=== PATIENT | female | born 1950 | race Caucasian/White ===

== ENCOUNTER → 2017-07-18 | Day surgery (SDC) | payer MEDICARE, BC ==
[2017-07-14 12:43] LABS: BASOPHILS % 0.5 % (0.0-1.0); EOSINOPHILS # (AUTO) 0.1 (0.0-0.4); EOSINOPHILS % 1.7 % (0.0-6.0); HEMATOCRIT 40.7 % (34.2-44.1); MEAN CORPUSCULAR HEMOGLOBIN 26.2 pg (28-32); MEAN CORPUSCULAR HGB CONC 31.9 g/dL (31-35); MEAN CORPUSCULAR VOLUME 81.9 fL (81-99); MONOCYTES # (AUTO) 0.5 (0.2-0.8); NEUTROPHILS # (AUTO) 4.8 (2.1-6.9); NEUTROPHILS % 63.5 % (38.7-80.0); PLATELET COUNT 266 x10e3/uL (140-360); RED BLOOD COUNT 4.97 x10e6/uL (3.6-5.1); RED CELL DISTRIBUTION WIDTH 14.5 % (11.7-14.4)
[~2017-07-18] MED LIST: ARMOUR THYROID60 MG; ARTHROTEC EC 71 EACH; ASPIRIN PO; BIOTIN PO; CARISOPRODOL250 MG; CARISOPRODOL250 MG PO; CARISOPRODOL350 MG PO; DESLORATADINE5 MG PO; ESCITALOPRAM OX20 MG PO; FENTANYL CITRATE/PF 100MCG/2 ML INJ IJ ONE; FISH OIL; GLUCAGON FOR INJ 1 MG VIAL IV ONE; HYDROCHLOROTHIA25 MG PO; HYOSCYAMINE SULFATE 0.5 MG/ML AMP IV ONE; LEVOTHYROXINE PO; LEVOTHYROXINE137 MCG PO; LIDOCAINE HCL 2% LOCAL INJ 5 ML SDV VIAL INJ ONE; LINZESS PO; MIDAZOLAM HCL 2 MG/2 ML VIAL INJ ONE; MULTIPLE VITAMIN; NEXIUM40 MG PO; NORTRIPTYLINE H25 MG PO; OSTEO BI-FLEX; PROPOFOL IV EMULSION 10 MG/ML 50 ML VIAL IV ONE; SAVELLA50 MG PO; TURMERIC CURCUMIN PO; VITAMIN B COMP1 EACH; VITAMIN D35000 UNIT PO; VITAMIN D5000 UNIT
--- NOTE | 2017-07-18 10:16 | Operative Report ---
DATE OF PROCEDURE: July 18, 2017 REFERRING PHYSICIAN: Dr. Omar Montalvo PROCEDURES PERFORMED 1. Esophagogastroduodenoscopy with esophageal dilatation. 2. Colonoscopy with polypectomy. INDICATIONS FOR EGD: Dysphagia and heartburn. INDICATIONS FOR COLONOSCOPY: Colorectal cancer screening, father with colon cancer and personal history of colon polyps. MEDICATION: The patient was done under MAC. Please see anesthesiologist's note. PROCEDURE: With the patient in the left lateral decubitus position, the flexible fiberoptic Olympus gastroscope was introduced into the esophagus under direct visualization without any difficulty. There was some patchy erythema noted in the distal esophagus. The scope was then advanced with ease and gastric stapling site was noted at 10 cm distal to the lower esophageal sphincter. The stapling site appeared somewhat stenotic and was traversed with the scope. The mucosa overlying the distal body and the antrum revealed some diffuse erythema and low-grade edema, and biopsies were obtained and sent to stain for H. pylori. The pylorus appeared to be of normal contour and shape. It was intubated with ease. The scope was advanced all the way to the 2nd portion of the duodenum. The scope was then withdrawn slowly. Mucosa overlying the proximal 2nd portion and the duodenal bulb appeared to be normal limits. The scope was then withdrawn back above the gastric stapling site and retroflexed. Mucosa overlying the fundus and the cardia appeared to be within normal limits. The scope was then straightened out. The stomach was decompressed. The stapling site was then dilated to a size 16 Savory over a wire. The patient tolerated the procedure well. IMPRESSION 1. Mild distal esophagitis. 2. Status post gastric stapling. 3. Gastric stapling site somewhat stenotic, dilated to size 16 Savory over a wire. PLAN: Follow up histology. Continue Nexium 40 mg 1 p.o. a.c. b.i.d. The patient was then turned around. After adequate lubrication of the anal canal, a flexible fiberoptic Olympus colonoscope was inserted into the rectum with ease and advanced all the way to the cecum. Prep overall was suboptimal with retained stools in the colon. One polyp was snared from the cecum. The scope was then withdrawn slowly. Mucosa overlying the ascending, transverse and descending grossly appeared to be within normal limits. Two polyps were snared from the sigmoid. Three polyps were snared from the rectum. The scope was then retroflexed into the distal rectum and small internal hemorrhoids were noted, none of which were actively bleeding. The scope was then straightened out. The rectosigmoid area, as well as the distal rectal area were decompressed. The scope was subsequently withdrawn. The patient tolerated the procedure well. IMPRESSION 1. Cecal polyp, snared. 2. Sigmoid colon polyps, snared times 2. 3. Rectal polyps, snared times 3. 4. Internal hemorrhoids, none actively bleeding. PLAN: Follow up histology. Initiate high-fiber and low-fat diet. Initiate high-fiber supplement. The patient will need a followup colonoscopy in 3 years. Job#: [id number] TUCKER cc:OMAR MONTALVO MD
== END | disposition home or self-care (01) ==
LOC: OR 06:56
PROVIDERS: ATTEND Internal Medicine Gastroenterology
DX: Z12.11 Encounter for screening for malignant neoplasm of colon (principal); D12.0 Benign neoplasm of cecum; D12.8 Benign neoplasm of rectum; K63.5 Polyp of colon; K20.9 Esophagitis, unspecified; Z98.84 Bariatric surgery status; K21.9 Gastro-esophageal reflux disease without esophagitis; K64.8 Other hemorrhoids; M79.7 Fibromyalgia; F32.9 Major depressive disorder, single episode, unspecified; F41.9 Anxiety disorder, unspecified; Z01.810 Encounter for preprocedural cardiovascular examination; Z01.812 Encounter for preprocedural laboratory examination; Z80.0 Family history of malignant neoplasm of digestive organs
CPT/HCPCS: 36415; 43248; 85025; 88305; 88312; 93005; J1610; J1980; J2001; J2250; 43239; 45385

== ENCOUNTER → 2018-08-14 | Day surgery (SDC) | payer MEDICARE, BC ==
[2018-08-10 13:08] LABS: BASOPHILS % 0.4 % (0.0-1.0); EOSINOPHILS # (AUTO) 0.1 (0.0-0.4); EOSINOPHILS % 1.3 % (0.0-6.0); HEMATOCRIT 40.7 % (34.2-44.1); HEMOGLOBIN 13.4 g/dL (12.0-16.0); LYMPHOCYTES # (AUTO) 2.3 (1.0-3.2); MEAN CORPUSCULAR HEMOGLOBIN 27.5 pg (28-32); MEAN CORPUSCULAR HGB CONC 32.9 g/dL (31-35); MEAN CORPUSCULAR VOLUME 83.4 fL (81-99); MONOCYTES # (AUTO) 0.5 (0.2-0.8); MONOCYTES % 6.5 % (4.4-11.3); NEUTROPHILS # (AUTO) 4.2 (2.1-6.9); NEUTROPHILS % 58.7 % (38.7-80.0); PLATELET COUNT 265 x10e3/uL (140-360); RED BLOOD COUNT 4.88 x10e6/uL (3.6-5.1); RED CELL DISTRIBUTION WIDTH 15.1 % (11.7-14.4)
[~2018-08-14] MED LIST changes: -FENTANYL CITRATE/PF 100MCG/2 ML INJ IJ ONE; +FENTANYL CITRATE/PF 100MCG/2 ML INJ ONE; -GLUCAGON FOR INJ 1 MG VIAL IV ONE; -HYOSCYAMINE SULFATE 0.5 MG/ML AMP IV ONE; +HYOSCYAMINE SULFATE 0.5 MG/ML INJ ONE; -MIDAZOLAM HCL 2 MG/2 ML VIAL INJ ONE; +MIDAZOLAM HCL 2 MG/2 ML VIAL ONE; +MOVE FREE PO; +MULTI-VITAMIN1 EACH PO; +PROBIOTIC & AC1 EACH PO; -PROPOFOL IV EMULSION 10 MG/ML 50 ML VIAL IV ONE; +PROPOFOL IV EMULSION 10 MG/ML 50 ML VIAL ONE
--- OUTSIDE RECORDS SUMMARY | 2018-08-16 11:06 | XMS REPORT ---
Author Tha Webb Organization eClinical[employer] Address Unknown Phone Unavailable Care Team Providers Care Outside Barrel Lathe Operator Name Role Phone Tha Moise CP Unavailable Allergies No Known Allergies Problems Problem Type Condition Code Onset Dates Condition Status Problem Left shoulder pain M25.512 Active Problem Primary osteoarthritis involving multiple joints M15.0 Active Problem Shoulder pain, right M25.511 Active Problem Fibromyalgia M79.7 Active Problem Osteopenia M85.80 Active Medications Medication Code System Code Instructions Start Date End Date Status Dosage Carisoprodol [facility] 80463796915 350 MG Orally once at night Jul 19, 2018 Active 2 tablet Results No Known Results Summary Purpose eClinicalWorks Submission
--- OUTSIDE RECORDS SUMMARY | 2018-08-16 11:06 | XMS REPORT ---
Author Author Juanita Zuleta [facility] [place] eClinicalWorks Address Unknown Phone Unavailable Care Team Providers Care Urban Planning Teacher Name Role Phone Juanita Zuleta Unavailable Allergies, Adverse Reactions, Alerts Substance Reaction Event Type lyrica Info Not Available Non Drug Allergy Problems Problem Type Condition Code Onset Dates Condition Status Problem Osteopenia M85.80 Active Problem Left shoulder pain M25.512 Active Problem Fibromyalgia M79.7 Active Assessment Primary osteoarthritis involving multiple joints M15.0 Active Problem Primary osteoarthritis involving multiple joints M15.0 Active Assessment Fibromyalgia M79.7 Active Medications Medication Code System Code Instructions Start Date End [place] D[place] [address] Orally qd Active 1 tab Escitalopram Oxalate ND 20462869387 20 MG Orally Once a day Active 0.5 tablet TUMERIC NDC 0 6,000 MG ORALLY ONCE A DAY Active 1 CAPSULE Savella ND 78649259443 50MG Orally Twice a day Active 1 tablet Nortriptyline HCl ND 41923711236 25 MG Orally Once a day Active 1 capsule Linzess ND 60444279884 145 MCG Orally every other morning Active 1 capsule Melatonin NDC 74386465245 5 MG Orally once at night Active 2 tablet at bedtime as needed with food Desloratadine ND 19927820990 5 MG Orally Once a day Active 1 tablet on the tongue and allow to dissolve Levothyroxin ND 0 137 MCG PO QD Active 1 tab Nexium ND 22760453446 40 MG Orally bid Active 1 capsules Carisoprodol ND 07106146054 350 MG Orally once at night Jul 06, 2017 March 14, 2018 Active 2 tablet Symbicort ND 98726673233 160-4.5 MCG/ACT Inhalation prn Active 2 puffs Probiotic NDC 08819789380 Orally qd Active 1 cap Vitamin D-3 Super Strength ND 80948630504 2000 UNIT Orally Once a day Active 1 capsule Vital Signs Date/Time: December 14, 2017 BMI 44.16 Index Weight 257.3 lbs Height 64 in Temperature 98.5 F Cardiac Monitoring Heart Rate 68 /min Blood Pressure Diastolic 70 mm Hg Blood Pressure Systolic 108 mm Hg Results No Known Results Summary Purpose eClinicalWorks Submission
--- OUTSIDE RECORDS SUMMARY | 2018-08-16 11:06 | XMS REPORT ---
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 Problem Left shoulder pain M25.512 Active Problem Primary osteoarthritis involving multiple joints M15.0 Active Problem Shoulder pain, right M25.511 Active Assessment Shoulder pain, right M25.511 Active Assessment Fibromyalgia M79.7 Active Problem Fibromyalgia M79.7 Active Problem Osteopenia M85.80 Active Medications Medication Code System Code Instructions Start Date End Date Status Dosage Probiotic NDC 27350655426 Orally qd [place] 1 [place] [address] Orally qd Active 1 tab Carisoprodol NDC 07246175203 350 MG Orally once at night Active 2 tablet Tumeric NDC 0 6,000 MG ORALLY ONCE A DAY Active 1 CAPSULE Levothyroxin NDC 0 137 MCG PO QD Active 1 tab Nortriptyline HCl NDC 79659594455 25 MG Orally Once a day Active 1 capsule Desloratadine ND 69452064512 5 MG Orally Once a day Active 1 tablet on the tongue and allow to dissolve Linzess ND 86785931440 145 MCG Orally every other morning Active 1 capsule Melatonin ND 35184804543 5 MG Orally once at night Active 2 tablet at bedtime as needed with food Vitamin D-3 Super Strength ND 47405311116 2000 UNIT Orally Once a day Active 1 capsule Nexium NDC 52005686701 40 MG Orally bid Active 1 capsules Savella NDC 40364904772 50MG Orally Twice a day Active 1 tablet Vital Signs Date/Time: Jul 07, 2018 BMI 41.53 Index Weight 242 lbs Height 64 in Temperature 98.1 F Cardiac Monitoring Heart Rate 80 /min Blood Pressure Diastolic 90 mm Hg Blood Pressure Systolic 132 mm Hg Results No Known Results Summary Purpose eClinicalWorks Submission
--- OUTSIDE RECORDS SUMMARY | 2018-08-16 11:06 | XMS REPORT | Summary of Care ---
Author Author [facility] Address Unknown Phone Unavailable Care Team Providers Care Cafeteria Team Leader Name Role Phone Carlos Felix PCP Encounter HQ Encntr_brendonleesa([facility]) [id number] Date(s): 07/18/15 - 08/16/15 [facility] Discharge Disposition: Home Attending Physician: Truman Malcolm MD Vital Signs No data available for this section Problem List No data available for this section Allergies, Adverse Reactions, Alerts No data available for this section Medications No data available for this section Results No data available for this section Immunizations No data available for this section Procedures No data available for this section Social History No data available for this section Assessment and Plan No data available for this section
--- OUTSIDE RECORDS SUMMARY | 2018-08-16 11:06 | XMS REPORT ---
Author Author Juanita Zuleta [facility] eClinicalWorks Address Unknown Phone Unavailable Care Team Providers Care Senior Maintenance Machinist Name Role Phone Juanita Zuleta Unavailable Allergies No Known Allergies Problems Problem Type Condition Code Onset Dates Condition Status Problem Left shoulder pain M25.512 Active Problem Primary osteoarthritis involving multiple joints M15.0 Active Problem Shoulder pain, right M25.511 Active Problem Fibromyalgia M79.7 Active Problem Osteopenia M85.80 Active Medications Medication Code System Code Instructions Start Date End Date Status Dosage Carisoprodol [facility] 46470332666 350 MG Orally once at night Jul 19, 2018 Active 2 tablet Results No Known Results Summary Purpose eClinicalWorks Submission
--- OUTSIDE RECORDS SUMMARY | 2018-08-16 11:06 | XMS REPORT ---
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 Problem Primary osteoarthritis involving multiple joints M15.0 Active Assessment Fibromyalgia M79.7 Active Medications Medication Code System Code Instructions Start Date End Date Status Dosage Desloratadine ND 10783401788 5 MG Orally Once a day Active 1 tablet on the tongue [place] [address] Orally qd Active 1 tab Savella ND 35390915132 50MG Orally Twice a day Jul 05, 2018 Active 1 tablet Carisoprodol ND 93363466806 350 MG Orally once at night Jul 06, 2017 Jul 05, 2018 Active 2 tablet Levothyroxin NDC 0 137 MCG PO QD Active 1 tab Linzess ND 94230294863 145 MCG Orally every other morning Active 1 capsule Nortriptyline HCl ND 41384586263 25 MG Orally Once a day Active 1 capsule Melatonin ND 45770606441 5 MG Orally once at night Active 2 tablet at bedtime as needed with food Vitamin D-3 Super Strength ND 43192629279 2000 UNIT Orally Once a day Active 1 capsule TUMERIC NDC 0 6,000 MG ORALLY ONCE A DAY Active 1 CAPSULE Probiotic ND 13697421644 Orally qd Active 1 cap Nexium NDC 04835665420 40 MG Orally bid Active 1 capsules BuPROPion HCl (Smoking Deter) NDC 54941191898 150 MG Orally Once a day Active 1 tablet in the morning Vital Signs Date/Time: April 06, 2018 BMI 43.51 Index Weight 253.5 lbs Height 64 in Temperature 97.5 F Cardiac Monitoring Heart Rate 70 /min Blood Pressure Diastolic 80 mm Hg Blood Pressure Systolic 126 mm Hg Results No Known Results Summary Purpose eClinicalWorks Submission
--- OUTSIDE RECORDS SUMMARY | 2018-08-16 11:06 | XMS REPORT | Summary of Care ---
Author Author [facility] Address Unknown Phone Unavailable Care Team Providers Care Stair Builder Name Role Phone Carlos Felix PCP Encounter [facility] Encntr_alias([facility]) [id number] Date(s): 07/03/15 - 07/11/15 [facility] Discharge Disposition: Home Attending Physician: Truman Malcolm [...]
--- OUTSIDE RECORDS SUMMARY | 2018-08-16 11:06 | XMS REPORT | Summary of Care ---
Author Author [facility] Address Unknown Phone Unavailable Care Team Providers Care Television Inspector Name Role Phone Carlos Felix PCP Encounter [facility] Encntr_brendonleesa([facility]) [id number] Date(s): 05/30/15 - 06/28/15 [facility] Discharge Disposition: Home Attending Physician: Truman Malcolm [...]
--- OUTSIDE RECORDS SUMMARY | 2018-08-16 11:06 | XMS REPORT | Clinical Summary ---
Author Author Wilmer Yarsani Organization [facility] Address Unknown Phone Unavailable Care Team Providers Care Card Checker Name Role Phone Asked, No Pcp PCP Unavailable Allergies Active Allergy Reactions Severity Noted Date Comments No Known Allergies 04/23/2016 Current Medications Prescription Sig. Disp. Refills Start End Date Status Date levothyroxine (SYNTHROID, Take 137 mcg by mouth Active LEVOTHROID) 137 MCG every morning. tablet esomeprazole (NexIUM) 40 Take 40 mg by mouth 2 Active MG capsule (two) times a day. milnacipran (SAVELLA) 50 Take 50 mg by mouth 2 Active mg tablet (two) times a day. carisoprodol (SOMA) 350 Take 350 mg by mouth 3 Active MG tablet (three) times a day as needed for muscle spasms. desloratadine (CLARINEX) Take 5 mg by mouth daily. Active 5 mg tablet nortriptyline (PAMELOR) Take 25 mg by mouth Active 25 MG capsule nightly. aspirin (ECOTRIN) 81 MG Take 81 mg by mouth Active enteric coated tablet daily. KRILL OIL ORAL Take by mouth. Active multivitamin with Take 1 tablet by mouth Active minerals tablet daily. desvenlafaxine (PRISTIQ) 01/14/20 Active 50 MG 24 hr tablet 18 escitalopram (LEXAPRO) 20 Take 20 mg by mouth 01/21/20 Discontin MG tablet nightly. 18 ued hydrochlorothiazide Take 25 mg by mouth 01/21/20 Discontin (HYDRODIURIL) 25 MG daily. 18 ued tablet GLUCOSAMINE HCL/CHONDR VAUGHN Take by mouth. 01/21/20 Discontin A NA (OSTEO BI-FLEX ORAL) 18 ued CALCIUM CARBONATE Take by mouth. 01/21/20 Discontin (CALTRATE 600 ORAL) 18 ued budesonide-formoterol Inhale 2 puffs 4 (four) 04/11/20 Discontin (SYMBICORT) 160-4.5 times a day as needed. 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 requiring isolated 06/23/2016 polyethylene liner exchange (HCC) S/P total hip arthroplasty 06/20/2016 Encounters Date Type Specialty Care Team Description 01/20/2018 Office Visit Orthopedic Surgery Josh Barnes MD Right shoulder pain, unspecified chronicity (Primary Dx); Osteoarthritis of glenohumeral joint, left; Osteoarthritis of right glenohumeral joint 08/27/2017 Office Visit Orthopedic Surgery Josh Barnes MD Left shoulder pain, unspecified chronicity (Primary Dx); Osteoarthritis of glenohumeral joint, left after 08/15/2017 Immunizations Name Dates Previously Given Next Due FLUCELVAX QUAD PF (0.5mL 06/24/2016 syringe) Family History Medical History Relation Name Comments Asthma Other Gout Other Heart disease Other Hypertension Other Rheum arthritis Other Seizures Other Thyroid disease Other Tuberculosis Other Ulcers Other Relation Name Status Comments Other Social History Tobacco Use Types Packs/Day Years Used Date Former Smoker Quit: 2001 Alcohol Use Drinks/Week oz/Week Comments No Sex Assigned at Date Recorded Not on file Last Filed Vital Signs Vital Sign Reading Time Taken Blood Pressure 119/75 01/20/2018 10:10 AM CDT Pulse 83 01/20/2018 10:10 AM CDT Temperature - - Respiratory Rate - - Oxygen Saturation - - Inhaled Oxygen - - Concentration Weight 111 kg (244 lb) 01/20/2018 10:10 AM CDT Height 162.6 cm (5' 4") 01/20/2018 10:10 AM CDT Body Mass Index 41.88 01/20/2018 10:10 AM CDT Plan of Treatment Health Maintenance Due Date Last Done Comments BREAST CANCER SCREENING 2000 COLON CANCER SCREENING 2000 SHINGRIX VACCINE (#1) 2000 ZOSTER VACCINE 2010 PNEUMOCOCCAL 2015 POLYSACCHARIDE VACCINE AGE 65 AND OVER PNEUMOCOCCAL-13 2015 INFLUENZA VACCINE 05/12/2018 06/24/2016 Implants Implanted Type Area Pulmonology Technician Device Expiration Model / Identifier Date Serial / Lot Ring Lkng Actblr Dynmc Cup Pe 56mm Hip Joint Right: Hip DEPUY ORTHO 11/11/2025 [id number] 58mm 60mm Duraloc - [id number] Implants / Implanted: Qty: 1 on 06/23/2016 by / Truman Malcolm MD [id number] Head Fml 09/24 Tprd Rev 36mm +5 Hip Joint Right: Hip DEPUY 10/11/2020 [id number] Articul/James [employer] Delta Ts - Implants ORTHO-KNEES / [id number] / Implanted: Qty: 1 on 06/23/2016 by [id number] Truman Malcolm MD Dur Mar +4 10d Lnr 36x56 - [id number] IPM Right: Hip DEPUY 11/11/2020 [id number] Implanted: Qty: 1 on 06/23/2016 by [employer], / Truman Malcolm MD [employer] / [id number] Procedures Procedure Name Priority Date/Time Associated Diagnosis Comments [place] ARTHROCENTESIS Routine 01/20/2018 Osteoarthritis of Results for this ASPIR&/INJ MAJOR JT/BURSA 10:30 AM CDT glenohumeral joint, left procedure are in the W/O US results section. XR SHOULDER 2+ VW RIGHT Routine 01/20/2018 Right shoulder pain, Results for this 10:07 AM CDT unspecified chronicity procedure are in the results section. 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 XR SHOULDER 2+ VW LEFT Routine 08/27/2017 Left shoulder pain, Results for this 9:58 AM AIRCRAFT MAINTENANCE SUPERVISOR unspecified chronicity procedure are in the results section. after 08/15/2017 Results * Large Joint Arthrocentesis (01/20/2018 10:30 AM) Narrative Performed At Josh Barnes MD 01/20/2018 11:08 AM Large Joint Arthrocentesis Consent given by: patient Timeout: Immediately prior to procedure a time out was called to verify the correct patient, procedure, equipment, it technical support specialist and site/side marked as required Supporting Documentation Indications: pain Procedure Details Preparation: Patient was prepped and draped in the usual sterile fashion Ultrasound guided: no Platelet Rich Plasma Used: no PRP Used Location: shoulder - L glenohumeral Left side: Needle size: 20 G Approach: posterior Left shoulder medications administered: 5 mL ropivacaine 0.5 %; 80 mg methylPREDNISolone acetate 80 mg/mL Patient tolerance: patient tolerated the procedure well with no immediate complications * XR Shoulder 2+ Vw Right (01/20/2018 10:07 AM) Narrative Performed At [facility], scapular Y, and axillary views of the right shoulder were obtained demonstrating end-stage glenohumeral osteoarthritis with a large inferior humeral osteophyte, obliteration of the joint space and posterior glenoid wear. Performing Organization Address [facility] Phone Number [facility] [phone] [place] [address] * Large Joint Arthrocentesis (08/27/2017 10:47 AM) Narrative Performed At Josh Barnes MD 08/27/2017 10:47 AM Large Joint Arthrocentesis Consent given by: patient Timeout: Immediately prior to procedure a time out was called to verify the correct patient, procedure, equipment, it technical support specialist and site/side marked as required Supporting Documentation Indications: pain Procedure Details Preparation: Patient was prepped and draped in the usual sterile fashion Ultrasound guided: no Platelet Rich Plasma Used: no PRP UsedLocation: shoulder - L glenohumeral Left side: Needle size: 20 G Approach: posterior Left shoulder medications administered: 5 mL ropivacaine 0.5 %; 80 mg methylPREDNISolone acetate 80 mg/mL Patient tolerance: patient tolerated the procedure well with no immediate complications * XR Shoulder 2+ Vw Left (08/27/2017 9:58 AM) Narrative Performed At [facility], scapular Y, and axillary views of the left shoulder were obtained demonstrating severe glenohumeral osteoarthritis with subchondral sclerosis and peripheral osteophyte formation. No fracture or dislocation. Diffuse osteopenia. Performing Organization Address City/State/[facility] Phone Number [facility] [address] [place] [address] after 08/15/2017 Insurance Payer Benefit Subscriber ID Type Phone Address Plan / Group BCBS BCBS xxxxxxxxxxxx PPO CHOICE PPO/FEDERA L EMPL PPO MEDICARE MEDICARE xxxxxxxxxx Medicare [place], [place] PART A AND B Home: [address] amily [facility] [place] [id number]
--- OUTSIDE RECORDS SUMMARY | 2018-08-16 11:06 | XMS REPORT | Continuity of Care Document ---
Author Author [facility] mikel [facility], [place] Interface Address Unknown Phone Unavailable Problems Problem Status Onset Date Classification Date Reported Comments Source Left shoulder pain Active Problem 07/24/2018 Ming Gauthierer Primary osteoarthritis involving multiple joints Active Problem 07/24/2018 Ming Gauthierer Shoulder pain, right Active Problem 07/24/2018 Ming Gauthierer Fibromyalgia Active Problem 07/24/2018 Ming Moise Osteopenia Active Problem 07/24/2018 Ming Gauthierer custodial use of opiate analgesic Active Diagnosis 07/10/2018 Ming Moise RT KNEE Active [facility] Medications Medication Details Route Status Patient Instructions Ordering Provider Order Date Source Carisoprodol 2 tablet Orally Active 350 MG Orally once at night Moise 07/19/2018 Ming Moise Savella 1 tablet Orally Active 50MG Orally Twice a day Zuleta 07/05/2018 Ming Moise Savella 1 tablet Orally Active 50MG Orally Twice a day Zuleta 12/14/2017 Ming Moise Carisoprodol 2 tablet Orally Active 350 MG Orally once at night Zuleta 07/06/2017 Ming Moise Multivitamin 1 tab Orally Active Orally qd [facility] Ming Moise Escitalopram Oxalate 0.5 tablet Orally Active 20 MG Orally Once a day Zuleta Ming Moise TUMERIC 1 CAPSULE ORALLY Active 6,000 MG ORALLY ONCE A DAY Zuleta Ming Moise Savella 1 tablet Orally Active 50MG Orally Twice a day [facility] Ming Moise Nortriptyline HCl 1 capsule Orally Active 25 MG Orally Once a day [facility] Ming Moise Linzess 1 capsule Orally Active 145 MCG Orally every other morning [facility] Ming Moise Melatonin 2 tablet at bedtime as needed with food Orally Active 5 MG Orally once at night [facility] Ming Moise Desloratadine 1 tablet on the tongue and allow to dissolve Orally Active 5 MG Orally Once a day [facility] Ming Moise Levothyroxin 1 tab PO Active 137 MCG PO QD Zuleta Ming Moise Nexium 1 capsules Orally Active 40 MG Orally bid Zuleta Ming Moise Symbicort 2 puffs Inhalation Active 160-4.5 MCG/ACT Inhalation prn [facility] Ming Moise Probiotic 1 cap Orally Active Orally qd [facility] Ming Moise Vitamin D-3 Super Strength 1 capsule Orally Active 2000 UNIT Orally Once a day [facility] Ming Moise BuPROPion HCl (Smoking Deter) 1 tablet in the morning Orally Active 150 MG Orally Once a day [facility] Ming Moise Carisoprodol 2 tablet Orally Active 350 MG Orally once at night [facility] Ming Moise Tumeric 1 CAPSULE ORALLY Active 6,000 MG ORALLY ONCE A DAY [facility] Ming Moise Allergies, Adverse Reactions, Alerts Substance Category Reaction Severity Reaction type Status Date Reported Comments Source lyrica Adverse Reaction Info Not Available Adverse Reaction Active 07/07/2018 Ming Moise Immunizations Immunization Date Given Site Status Last Updated Comments Source Results Order Name Results Value Reference Range Date Interpretation Comments Source Vital Signs Vital Sign Value Date Comments Source Weight 242 07/07/2018 Ming Gauthierer Height 64 07/07/2018 Ming Moise Temperature Oral (F) 98.1 F 07/07/2018 Ming Moise Heart Rate 80 07/07/2018 Ming Moise Diastolic (mm Hg) 90 07/07/2018 Ming Moise Systolic (mm Hg) 132 07/07/2018 Ming Moise Weight 253.5 04/06/2018 Ming Moise Height 64 04/06/2018 Ming Moise Temperature Oral (F) 97.5 F 04/06/2018 Ming Moise Heart Rate 70 04/06/2018 Ming Moise Diastolic (mm Hg) 80 04/06/2018 Ming Moise Systolic (mm Hg) 126 04/06/2018 Ming Moise Weight 257.3 12/14/2017 Ming Moise Height 64 12/14/2017 Ming Moise Temperature Oral (F) 98.5 F 12/14/2017 Ming Moise Heart Rate 68 12/14/2017 Ming Moise Diastolic (mm Hg) 70 12/14/2017 Ming Moise Systolic (mm Hg) 108 12/14/2017 Ming Moise Weight 260.1 09/15/2017 Ming Moise Height 64 09/15/2017 Ming Moise Temperature Oral (F) 97.7 F 09/15/2017 Ming Moise Heart Rate 68 09/15/2017 Ming Moise Diastolic (mm Hg) 68 09/15/2017 Mign Moise Systolic (mm Hg) 104 09/15/2017 Ming Moise Encounters Location Location Details Encounter Type Encounter Number Reason For Visit Attending Provider ADM Date DC Date Status Source [id number] [facility]2015 [facility] [id number] [facility] 07/03/2015 07/11/2015 [facility] [id number] [facility] 07/18/2015 08/17/2015 [facility] Procedures Procedure Code Date Perfomer Comments Source
--- OUTSIDE RECORDS SUMMARY | 2018-08-16 11:06 | XMS REPORT ---
Author Author Juanita Zuleta [facility] [employer] Address Unknown Phone Unavailable Care Team Providers Care Script Coordinator Name Role Phone Juanita Zuleta Unavailable Allergies, Adverse Reactions, Alerts Substance Reaction Event Type lyrica Info Not Available Non Drug Allergy Problems Problem Type Condition Code Onset Dates Condition Status Problem Osteopenia M85.80 Active Problem Left shoulder pain M25.512 Active Problem Fibromyalgia M79.7 Active Assessment Osteopenia M85.80 Active Assessment Primary osteoarthritis involving multiple joints M15.0 Active Problem Primary osteoarthritis involving multiple joints M15.0 Active Assessment Fibromyalgia M79.7 Active Medications Medication Code System Code Instructions Start Date End Date Status Dosage Linzess ND 03537764194 145 MCG Orally every other morning Active 1 capsule Desloratadine ND 13048240208 5 MG Orally Once a day Active 1 tablet on the tongue and allow to dissolve TUMERIC NDC 0 6,000 MG ORALLY ONCE A DAY Active 1 CAPSULE Levothyroxin NDC 0 137 MCG PO QD Active 1 tab Symbicort NDC 20711443792 160-4.5 MCG/ACT Inhalation prn Active 2 puffs Multivitamin NDC 38348-41100 Orally qd Active 1 tab Probiotic NDC 78976379070 Orally qd Active 1 cap Nexium ND 73437931706 40 MG Orally bid Active 1 capsules Escitalopram Oxalate ND 75032538364 20 MG Orally Once a day Active 0.5 tablet Vitamin D-3 Super Strength ND 64181373554 2000 UNIT Orally Once a day Active 1 capsule Nortriptyline HCl NDC 90034800061 25 MG Orally Once a day Active 1 capsule Savella ND 61814951998 50MG Orally Twice a day December 14, 2017 Active 1 tablet Carisoprodol NDC 89933008770 350 MG Orally once at night Jul 06, 2017 December 14, 2017 Active 2 tablet Melatonin NDC 22365332573 5 MG Orally Once a day Active 1 tablet at bedtime as needed with food Vital Signs Date/Time: Sep 15, 2017 BMI 44.64 Index Weight 260.1 lbs Height 64 in Temperature 97.7 F Cardiac Monitoring Heart Rate 68 /min Blood Pressure Diastolic 68 mm Hg Blood Pressure Systolic 104 mm Hg Results No Known Results Summary Purpose e[employer] Submission
--- NOTE | 2018-09-29 06:50 | Operative Report ---
DATE OF PROCEDURE: August 14, 2018 PROCEDURES PERFORMED: 1. Esophagogastroduodenoscopy with esophageal dilatation and biopsies. 2. Colonoscopy with polypectomy. REFERRING PHYSICIAN: Dr. Omar Hendricks INDICATIONS FOR EGD: Dysphagia, heartburn, indigestion. INDICATIONS FOR COLONOSCOPY: Surveillance colonoscopy, father with colon cancer, personal history of colon polyps. MEDICATION: Patient was done under MAC. Please see anesthesiologist note. PROCEDURE IN DETAIL: With the patient in left lateral decubitus position, flexible fiberoptic Olympus gastroscope was introduced into the esophagus under direct visualization without any difficulty. There was some patchy erythema noted in distal esophagus. A scope was then advanced into the stomach after dilating the esophagus to size 50-Swazi Celestin. There was gastric stapling site noted at approximately 50 cm from the incisors. It was patent. It was traversed with ease. Mucosa overlying the antrum and the distal body revealed some diffuse erythema and low-grade edema, and biopsies were obtained and sent to stain for H. pylori. The pylorus was of normal contour and shape. It was intubated with ease and the scope was advanced all the way to the second portion of the duodenum. The scope was then withdrawn slowly. Mucosa overlying the proximal second portion and the duodenal bulb appeared to be within normal limits. The scope was then withdrawn above the gastric stapling site and it was retroflexed. Mucosa overlying the fundus and the cardia appeared to be within normal limits. The scope was then straightened out. It was subsequently withdrawn. Patient tolerated the procedure well. IMPRESSION: 1. Distal esophagitis, mild. 2. Esophagus dilated to size 52-Swazi Celestin. 3. Gastric stapling site at 50 cm from incisors intact. 4. Gastritis, biopsied. Biopsy sent to stain for Helicobacter pylori. PLAN: Follow up histology. Increase Nexium to 40 mg 1 p.o. a.c. b.i.d. Patient was then turned around. After adequate lubrication of the anal canal, flexible fiberoptic Olympus colonoscope was inserted into the rectum with ease and advanced all the way to the cecum. Mucosa overlying the cecum appeared to be within normal limits. Two polyps were hot biopsied from the ascending colon. The transverse and the descending appeared to be within normal limits. Nine polyps were hot biopsied from the sigmoid colon and 2 polyps were hot biopsied from the rectum. The scope was then retroflexed into the distal rectum, and small internal hemorrhoids were noted, none of which was actively bleeding. The scope was then straightened out. It was subsequently withdrawn. Patient tolerated the procedure well. IMPRESSION: 1. Ascending polyps x2, hot biopsied. 2. Sigmoid colon polyps x9, hot biopsied. 3. Rectal polyps x2, hot biopsied. 4. Internal hemorrhoids, none actively bleeding. PLAN: Follow up histology. Initiate high-fiber low-fat diet. Initiate high-fiber supplement. A total of 13 polyps were removed. Patient might benefit from a followup colonoscopy in 2 to 3 years. Job#: [id number]
== END | disposition home or self-care (01) ==
LOC: OR 10:16
PROVIDERS: ATTEND Internal Medicine Gastroenterology
DX: Z12.11 Encounter for screening for malignant neoplasm of colon (principal); D12.2 Benign neoplasm of ascending colon; K62.1 Rectal polyp; K29.70 Gastritis, unspecified, without bleeding; K20.9 Esophagitis, unspecified; K59.00 Constipation, unspecified; K31.89 Other diseases of stomach and duodenum; K64.8 Other hemorrhoids; Z98.84 Bariatric surgery status; E03.9 Hypothyroidism, unspecified; I10 Essential (primary) hypertension; M79.7 Fibromyalgia; R53.83 Other fatigue; G47.33 Obstructive sleep apnea (adult) (pediatric); E66.01 Morbid (severe) obesity due to excess calories; I45.10 Unspecified right bundle-branch block; F41.9 Anxiety disorder, unspecified; F32.9 Major depressive disorder, single episode, unspecified; Z01.810 Encounter for preprocedural cardiovascular examination; Z01.812 Encounter for preprocedural laboratory examination; Z68.41 Body mass index [BMI] 40.0-44.9, adult; Z96.643 Presence of artificial hip joint, bilateral; Z80.0 Family history of malignant neoplasm of digestive organs
CPT/HCPCS: 36415; 43239; 43450; 45384; 85025; 88305; 88312; 93005; J1980; J2001; J2250

== ENCOUNTER → 2019-12-24 | Day surgery (SDC) | payer MEDICARE, BC ==
[2019-12-21 15:12] LABS: BASOPHILS % 0.5 % (0.0-1.0); EOSINOPHILS # (AUTO) 0.1 (0.0-0.4); EOSINOPHILS % 1.1 % (0.0-6.0); HEMATOCRIT 39.6 % (34.2-44.1); HEMOGLOBIN 12.4 g/dL (12.0-16.0); LYMPHOCYTES # (AUTO) 2.2 (1.0-3.2); LYMPHOCYTES % 35.7 % (18.0-39.1); MEAN CORPUSCULAR HEMOGLOBIN 26.1 pg (28-32); MEAN CORPUSCULAR HGB CONC 31.3 g/dL (31-35); MEAN CORPUSCULAR VOLUME 83.2 fL (81-99); MONOCYTES # (AUTO) 0.4 (0.2-0.8); MONOCYTES % 6.9 % (4.4-11.3); NEUTROPHILS # (AUTO) 3.4 (2.1-6.9); NEUTROPHILS % 55.6 % (38.7-80.0); PLATELET COUNT 242 x10e3/uL (140-360); RED BLOOD COUNT 4.76 x10e6/uL (3.6-5.1)
[~2019-12-24] MED LIST changes: +GLUCAGON FOR INJ 1 MG VIAL ONE; +HYOSCYAMINE 0.125 MG TAB ONE; -HYOSCYAMINE SULFATE 0.5 MG/ML INJ ONE; +IBUPROFEN400 MG PO; +KETAMINE HCL INJ 50 MG/ML 10 ML VIAL ONE; -MIDAZOLAM HCL 2 MG/2 ML VIAL ONE; +PROPOFOL IV EMULSION 10 MG/ML 20 ML VIAL ONE; +ULTRAM50 MG PO
--- NOTE | 2019-12-24 21:38 | Operative Report ---
DATE OF PROCEDURE: 12/24/2019 SURGEON: Juan Carlos Del Toro MD PROCEDURE PERFORMED: EGD with biopsies and colonoscopy with polypectomy. INDICATION FOR EGD: History of intestinal metaplasia, antrum. INDICATIONS FOR COLONOSCOPY: Surveillance colonoscopy, personal history of colon polyps, father with colon cancer. MEDICATIONS: The patient was done under MAC, please see anesthesiologist's note. PROCEDURE IN DETAIL: With the patient in left lateral decubitus position, flexible fiberoptic Olympus gastroscope was introduced into the esophagus under direct visualization without any difficulty. There was some patchy erythema noted in the distal esophagus. The scope was then advanced with ease into the stomach and there was some patchy nodularity noted in the proximal body and that was biopsied. Gastric stapling site was noted at approximately 50 cm from the incisors and that was traversed with ease and mucosa overlying the antrum revealed some patchy erythema and [id number] edema and biopsies were obtained. Pylorus was of normal contour and shape, was intubated with ease and the scope was advanced all the way to the second portion of the duodenum. The scope was then withdrawn slowly and mucosa overlying the proximal second portion and duodenal bulb appeared to be within normal limits. The scope was then withdrawn back into the stomach and was withdrawn above the gastric stapling site and the fundus and cardia grossly appeared to be within normal limits. The scope was then straightened out and was subsequently withdrawn. The patient tolerated the procedure well. IMPRESSION: 1. Distal esophagitis, mild. 2. Status post gastric stapling intact. 3. Patchy nodularity body, biopsies obtained. 4. Antrum biopsied. PLAN: Follow up histology. Continue Nexium 40 mg 1 p.o. a.c. b.i.d. The patient was then turned around. After adequate lubrication of the anal canal, a flexible fiberoptic Olympus colonoscope was inserted into the rectum with ease and advanced all the way to the cecum. Prep overall was suboptimal with some retained stools in the colon, but visualization was fair. The scope was then withdrawn slowly whatever was visualized the mucosa overlying the cecum appeared to be within normal limits. An approximately 6 mm polyp was removed per snare electrocautery from the distal ascending colon. Whatever was visualized in the transverse and descending colon appeared to be within normal limits. A minute polyp was hot biopsied from the sigmoid colon. Two polyps were hot biopsied from the rectum. The scope was then retroflexed into the distal rectum. Small internal hemorrhoids were noted, none of which was actively bleeding. The scope was then straightened out and it was subsequently withdrawn. The patient tolerated the procedure well. IMPRESSION: 1. Suboptimal prep, but visualization was fair. 2. Ascending colon polyp, hot snared. 3. Sigmoid colon polyp, hot biopsied. 4. Rectal polyps x2, hot biopsied. 5. Internal hemorrhoids, none actively bleeding. PLAN: Followup histology. Initiate high-fiber, low-fat diet. Initiate high-fiber supplement. The patient might benefit from a followup colonoscopy in 3 years. Juan Carlos Del Toro MD [facility] [place] [place] /[id number] cc: Omar Hendricks MD
== END | disposition home or self-care (01) ==
LOC: OR 09:50
PROVIDERS: ATTEND Internal Medicine Gastroenterology
DX: K20.9 Esophagitis, unspecified (principal); K22.70 Barrett's esophagus without dysplasia; Z80.0 Family history of malignant neoplasm of digestive organs; K63.5 Polyp of colon; K62.1 Rectal polyp; K64.8 Other hemorrhoids; D12.2 Benign neoplasm of ascending colon; Z01.810 Encounter for preprocedural cardiovascular examination; Z01.812 Encounter for preprocedural laboratory examination; K21.9 Gastro-esophageal reflux disease without esophagitis; E03.9 Hypothyroidism, unspecified; G47.33 Obstructive sleep apnea (adult) (pediatric); F41.9 Anxiety disorder, unspecified; K31.89 Other diseases of stomach and duodenum
CPT/HCPCS: 36415; 43239; 45384; 45385; 85025; 88305; 88312; 93005; J1610; J2001; J2704 ×2; J3010; 45378